=== PATIENT | female | born 1940 | race Caucasian/White ===

== ENCOUNTER 2017-07-26 12:24 | Day surgery (SDC) | payer OTHER ==
[~2017-07-26] VITALS: Ht 165.1 cm; Wt 86.9 kg
[~2017-07-26 12:24] MED LIST: ASPI325; ASPI325EC; ASPI81CH; ASPI81EC PO; ATOR10; ATOR10 PO; CALCIT950; CALCIUM PO; CHOL10002; CHOND PO; CONEST.625; CONEST.9 PO; FISH1000; FLAX; FLAX PO; FLURBIPROFEN PO; FOLI1; GLUCHON; GLUCO PO; HYDACE7.5; HYDROCODONE PO; LEVFLO500; LEVSOD125; LEVSOD150 PO; MELA3; MELATONIN PLUS PO; MULVITB; MULVITB&C PO; MULVITMIND PO; MULVITMINE; OMEGA-3 PO; OXYBUTYNIN ER PO; PREMARIN; PREMARIN PO; PROBIOTIC1 EAC1; TOCO400; TOCO400 PO; TURMERIC500 MG; VIT A PO; VITAMIN C PO; [UNRECOGNIZED DRUG - OTHER] PO; [UNRECOGNIZED DRUG - OTHER] PO
== END 2017-07-26 13:50 | disposition home or self-care (01) ==
LOC: ORSCSDS 12:24
PROVIDERS: Anesthesiology
PROC: 3E0R33Z Introduction of Anti-inflammatory into Spinal Canal, Percutaneous Approach (ICD-10-PCS; principal; 2017-07-26 13:30)
DX: M51.16 Intervertebral disc disorders with radiculopathy, lumbar region (principal); I10 Essential (primary) hypertension; E03.9 Hypothyroidism, unspecified; K21.9 Gastro-esophageal reflux disease without esophagitis; E78.00 Pure hypercholesterolemia, unspecified; E66.9 Obesity, unspecified; Z68.32 Body mass index [BMI] 32.0-32.9, adult
CPT/HCPCS: J1040

== ENCOUNTER 2017-08-10 06:57 | Day surgery (SDC) | payer OTHER ==
[~2017-08-10] VITALS: Ht 152.4 cm; Wt 84.8 kg
== END 2017-08-10 10:28 | disposition home or self-care (01) ==
LOC: ORSCSDS 06:57
PROVIDERS: Podiatrist Foot & Ankle Surgery
PROC: 0SGQ04Z Fusion of Left Toe Phalangeal Joint with Internal Fixation Device, Open Approach (ICD-10-PCS; principal; 2017-08-10 08:30)
DX: M19.072 Primary osteoarthritis, left ankle and foot (principal); M20.62 Acquired deformities of toe(s), unspecified, left foot; M25.775 Osteophyte, left foot; I10 Essential (primary) hypertension; E03.9 Hypothyroidism, unspecified; Z79.899 Other long term (current) drug therapy; Z87.891 Personal history of nicotine dependence; Z79.82 Long term (current) use of aspirin
CPT/HCPCS: J0690; J2250; J3010; J7120

== ENCOUNTER 2017-11-24 11:27 | Day surgery (SDC) | payer OTHER ==
[~2017-11-24] VITALS: Ht 162.6 cm; Wt 88.7 kg
== END 2017-11-24 13:52 | disposition home or self-care (01) ==
LOC: ORSCSDS 11:27
PROVIDERS: Anesthesiology
PROC: 3E0R33Z Introduction of Anti-inflammatory into Spinal Canal, Percutaneous Approach (ICD-10-PCS; principal; 2017-11-24 12:45)
DX: M51.16 Intervertebral disc disorders with radiculopathy, lumbar region (principal); Z79.899 Other long term (current) drug therapy; K21.9 Gastro-esophageal reflux disease without esophagitis; E03.9 Hypothyroidism, unspecified; Z87.891 Personal history of nicotine dependence; Z79.82 Long term (current) use of aspirin
CPT/HCPCS: J1040

== ENCOUNTER 2018-04-06 10:16 | Day surgery (SDC) | payer OTHER ==
[~2018-04-06] VITALS: Ht 162.6 cm; Wt 88.6 kg
[2018-04-06] MEDS ORDERED: Cyclobenzaprine5 MG (10:40)
[2018-04-06] MEDS ORDERED: OXYB5 (10:40)
[2018-04-06] MEDS ORDERED: NAPR500 (10:40)
[2018-04-06] MEDS ORDERED: LINZESS290 MCG (10:41)
== END 2018-04-06 11:39 | disposition home or self-care (01) ==
LOC: ORSCSDS 10:16
PROVIDERS: Anesthesiology
PROC: 3E0R33Z Introduction of Anti-inflammatory into Spinal Canal, Percutaneous Approach (ICD-10-PCS; principal; 2018-04-06 11:15)
DX: M51.16 Intervertebral disc disorders with radiculopathy, lumbar region (principal); E66.9 Obesity, unspecified; I10 Essential (primary) hypertension; K21.9 Gastro-esophageal reflux disease without esophagitis; E78.00 Pure hypercholesterolemia, unspecified; E03.9 Hypothyroidism, unspecified; Z68.33 Body mass index [BMI] 33.0-33.9, adult; Z79.82 Long term (current) use of aspirin; Z79.899 Other long term (current) drug therapy
CPT/HCPCS: J1040; J2001

== ENCOUNTER 2018-08-07 08:56 | Day surgery (SDC) | payer OTHER ==
[~2018-08-07] VITALS: Ht 165.1 cm; Wt 88.5 kg
[~2018-08-07 08:56] MED LIST changes: +Cyclobenzaprine5 MG; +LINZESS290 MCG; +NAPR500; +OXYB5
== END 2018-08-07 10:11 | disposition home or self-care (01) ==
LOC: ORSCSDS 08:56
PROVIDERS: Anesthesiology
PROC: 3E0R33Z Introduction of Anti-inflammatory into Spinal Canal, Percutaneous Approach (ICD-10-PCS; principal; 2018-08-07 10:00)
DX: M51.16 Intervertebral disc disorders with radiculopathy, lumbar region (principal); I10 Essential (primary) hypertension; E03.9 Hypothyroidism, unspecified; E78.00 Pure hypercholesterolemia, unspecified; K21.9 Gastro-esophageal reflux disease without esophagitis; E66.9 Obesity, unspecified; Z68.33 Body mass index [BMI] 33.0-33.9, adult; Z79.82 Long term (current) use of aspirin; Z79.899 Other long term (current) drug therapy
CPT/HCPCS: J1040

== ENCOUNTER 2018-11-27 08:42 | Day surgery (SDC) | payer OTHER ==
[~2018-11-27] VITALS: Ht 165.1 cm; Wt 88.0 kg
[~2018-11-27 08:42] MED LIST changes: +LO-DOSE ASPIRIN81 MG PO; +MELATONIN5 M1 PO
== END 2018-11-27 09:45 | disposition home or self-care (01) ==
LOC: ORSCSDS 08:42
PROVIDERS: Anesthesiology
PROC: 3E0R33Z Introduction of Anti-inflammatory into Spinal Canal, Percutaneous Approach (ICD-10-PCS; principal; 2018-11-27 08:00)
DX: M51.16 Intervertebral disc disorders with radiculopathy, lumbar region (principal); I10 Essential (primary) hypertension; E78.00 Pure hypercholesterolemia, unspecified; E03.9 Hypothyroidism, unspecified; Z87.891 Personal history of nicotine dependence; Z79.82 Long term (current) use of aspirin; Z79.899 Other long term (current) drug therapy
CPT/HCPCS: J1040

== ENCOUNTER → 2019-01-25 | Outpatient (CLI) | payer OTHER ==
[2019-01-25 13:12] LABS: BASOPHILS ABSOLUTE AUTO 0.04 K/mm3 (0.00-0.23); BASOPHILS PERCENT AUTO 1 % (0-2); EOSINOPHILS ABSOLUTE AUTO 0.35 K/mm3 (0.00-0.68); EOSINOPHILS PERCENT AUTO 5 % (0-6); Hematocrit 32.7 % (33.0-51.0); Hemoglobin 10.5 g/dL (11.5-16.0); IMMATURE GRAN ABSOLUTE AUTO 0.02 K/mm3 (0.00-0.10); IMMATURE GRAN PERCENT AUTO 0 % (0-1); LYMPHOCYTES PERCENT AUTO 26 % (21-46); MONOCYTES ABSOLUTE AUTO 0.63 K/mm3 (0.16-1.47); MONOCYTES PERCENT AUTO 10 % (4-13); Mean Corpuscular HGB 27.3 pg (26.0-34.0); Mean Corpuscular HGB Conc 32.1 g/dL (31.5-36.5); Mean Corpuscular Volume 85 fL (80-100); Mean Platelet Volume 10.2 fL (9.1-12.4); NEUTROPHILS ABSOLUTE AUTO 3.87 K/mm3 (1.96-9.15); NEUTROPHILS PERCENT AUTO 59 % (41-73); Platelet Count 156 K/mm3 (150-400); RDW Coefficient Variation 19.5 % (11.7-14.2); RDW Standard Deviation 59.2 fL (35.1-46.3); Red Blood Cell Count 3.85 M/mm3 (3.80-5.20); White Blood Cell Count 6.61 K/mm3 (4.00-11.30)
[2019-01-25 13:22] LABS: Albumin, Blood 2.9 g/dL (3.4-5.0); Albumin/Globulin Ratio 0.9 (0.8-1.8); Bilirubin, Total 0.4 mg/dL (0.1-1.0); Bun/Creatinine Ratio 15.4 (12.0-20.0); Calcium, Blood 8.6 mg/dL (8.5-10.1); Creatinine, Blood 0.91 mg/dL (0.40-1.00); Globulin, Blood 3.4 g/dL (2.2-4.0); Potassium, Blood 4.1 mmol/L (3.5-5.5); Total Protein, Blood 6.3 g/dL (6.4-8.2)
== END | disposition home or self-care (01) ==
LOC: LAB EV 13:07 → LAB SHORT 13:07
PROVIDERS: General Practice
DX: J18.1 Lobar pneumonia, unspecified organism (principal)
CPT/HCPCS: 80053; 85025

== ENCOUNTER 2019-04-04 10:22 | Day surgery (SDC) | payer OTHER ==
[~2019-04-04] VITALS: Ht 165.1 cm; Wt 90.0 kg
== END 2019-04-04 11:45 | disposition home or self-care (01) ==
LOC: ORSCSDS 10:22
PROVIDERS: Anesthesiology
PROC: 3E0R33Z Introduction of Anti-inflammatory into Spinal Canal, Percutaneous Approach (ICD-10-PCS; principal; 2019-04-04 11:30)
DX: M51.16 Intervertebral disc disorders with radiculopathy, lumbar region (principal); I10 Essential (primary) hypertension; E78.5 Hyperlipidemia, unspecified; E03.9 Hypothyroidism, unspecified; Z79.899 Other long term (current) drug therapy
CPT/HCPCS: J1040

== ENCOUNTER 2019-09-23 10:59 | Day surgery (SDC) | payer OTHER ==
[~2019-09-23] VITALS: Ht 165.1 cm; Wt 93.8 kg
[2019-09-23] MEDS ORDERED: MELO7.5 (11:19)
== END 2019-09-23 12:48 | disposition home or self-care (01) ==
LOC: ORSCSDS 10:59
PROVIDERS: Anesthesiology
PROC: 3E0R33Z Introduction of Anti-inflammatory into Spinal Canal, Percutaneous Approach (ICD-10-PCS; principal; 2019-09-23 12:00)
DX: M51.16 Intervertebral disc disorders with radiculopathy, lumbar region (principal); I10 Essential (primary) hypertension; E03.9 Hypothyroidism, unspecified; E78.00 Pure hypercholesterolemia, unspecified; E66.01 Morbid (severe) obesity due to excess calories; Z68.34 Body mass index [BMI] 34.0-34.9, adult; Z79.82 Long term (current) use of aspirin; Z79.899 Other long term (current) drug therapy
CPT/HCPCS: J1040

== ENCOUNTER 2020-10-08 09:26 | Day surgery (SDC) | payer OTHER ==
[~2020-10-08] VITALS: Ht 165.1 cm; Wt 98.9 kg
[~2020-10-08 09:26] MED LIST changes: +A AND D OINTM42.5 G1; +Aspirin EC81 MG PO; +C COMPLEX1000 M2 PO; +FLAXSEED OIL1000 M1 PO; +LEVSOD112 PO; +LINZESS290 MCG PO; +MELA3 PO; +MELO7.5; +MELO7.5 PO; +METAMUCIL POWD575 GM; +MULTIPLE VITAM1 EACH PO; +Norco 10-325 T1 EACH PO; +Norco 7.5-3251 EACH PO; +OMEGA-3 KRILL1 EAC3 PO; +OMEP20ER PO; +OXYB5 PO; +VITAMIN D325 MC3 PO
== END 2020-10-08 10:35 | disposition home or self-care (01) ==
LOC: ORSCSDS 09:26
PROVIDERS: Anesthesiology
PROC: 3E0R33Z Introduction of Anti-inflammatory into Spinal Canal, Percutaneous Approach (ICD-10-PCS; principal; 2020-10-08 10:30)
DX: M51.16 Intervertebral disc disorders with radiculopathy, lumbar region (principal); E78.00 Pure hypercholesterolemia, unspecified; K21.9 Gastro-esophageal reflux disease without esophagitis; E03.9 Hypothyroidism, unspecified; I10 Essential (primary) hypertension; E66.9 Obesity, unspecified; Z68.36 Body mass index [BMI] 36.0-36.9, adult; Z79.82 Long term (current) use of aspirin; Z79.899 Other long term (current) drug therapy
CPT/HCPCS: J1040

== ENCOUNTER 2021-02-22 13:21 | Day surgery (SDC) | payer OTHER ==
[~2021-02-22] VITALS: Ht 165.1 cm; Wt 96.9 kg
[2021-02-22] MEDS ORDERED: CALCIUM 600 +1 EAC8 PO (13:47)
[2021-02-22] MEDS ORDERED: MAGNESIUM OXID500 MG PO (13:47)
[2021-02-22] MEDS ORDERED: PROBIOTIC1 EA13 PO (13:49)
[2021-02-22] MEDS ORDERED: Aspir 8181 MG PO (13:49)
[2021-02-22] MEDS ORDERED: CYCLOBENZAPRINE5 MG PO (13:49)
== END 2021-02-22 14:35 | disposition home or self-care (01) ==
LOC: ORSCSDS 13:21
PROVIDERS: Anesthesiology
PROC: 3E0R33Z Introduction of Anti-inflammatory into Spinal Canal, Percutaneous Approach (ICD-10-PCS; principal; 2021-02-22 14:30)
DX: M51.16 Intervertebral disc disorders with radiculopathy, lumbar region (principal); M54.16 Radiculopathy, lumbar region; I10 Essential (primary) hypertension; E03.9 Hypothyroidism, unspecified; E78.00 Pure hypercholesterolemia, unspecified; K21.9 Gastro-esophageal reflux disease without esophagitis; Z79.82 Long term (current) use of aspirin; Z79.899 Other long term (current) drug therapy
CPT/HCPCS: J1040

== ENCOUNTER 2021-05-24 10:05 | Day surgery (SDC) | payer OTHER ==
[~2021-05-24] VITALS: Ht 165.1 cm; Wt 98.0 kg
[~2021-05-24 10:05] MED LIST changes: +Aspir 8181 MG PO; +CALCIUM 600 +1 EAC8 PO; +CYCLOBENZAPRINE5 MG PO; +MAGNESIUM OXID500 MG PO; +PROBIOTIC1 EA13 PO
== END 2021-05-24 11:40 | disposition home or self-care (01) ==
LOC: ORSCSDS 10:05
PROVIDERS: Anesthesiology
PROC: 3E0R33Z Introduction of Anti-inflammatory into Spinal Canal, Percutaneous Approach (ICD-10-PCS; principal; 2021-05-24 11:15)
DX: M51.16 Intervertebral disc disorders with radiculopathy, lumbar region (principal); E03.9 Hypothyroidism, unspecified; E78.00 Pure hypercholesterolemia, unspecified; Z79.82 Long term (current) use of aspirin; Z79.899 Other long term (current) drug therapy
CPT/HCPCS: J1040

== ENCOUNTER → 2021-05-29 | Outpatient (CLI) | payer OTHER | END | disposition home or self-care (01) | LOC: LAB SHORT 15:18 | DX: N39.0 Urinary tract infection, site not specified (principal) | CPT/HCPCS: 87086 ==

== ENCOUNTER → 2021-06-29 | Outpatient (CLI) | payer OTHER | END | disposition home or self-care (01) | LOC: LAB SHORT 18:35 | DX: N39.0 Urinary tract infection, site not specified (principal) | CPT/HCPCS: 87077; 87086; 87186 ==

== ENCOUNTER 2021-09-20 10:09 | Day surgery (SDC) | payer OTHER ==
[~2021-09-20] VITALS: Ht 165.1 cm; Wt 96.0 kg
[~2021-09-20 10:09] MED LIST changes: -CALCIUM 600 +1 EAC8 PO; +VIT PO
--- NOTE | 2021-09-21 03:07 | NUR ---
CURRENT B/P WAS TAKEN WHEN PT. JUST MOVED AROUND FROM THE BEDSIDE COMMODE, RECHECK AFTER A FEW MINUTES = 151/71. PT. ASYMPTOMATIC, DENIES CP.
--- NOTE | 2021-09-21 03:14 | NUR ---
SHIFT SUMMARY: PATIENT AOX4, ABLE TO MAKE NEEDS KNOWN, USES CALL LIGHT FOR HELP. L KNEE INCISION WITH ACEWRAP C/D/I. POLAR PACK ON. VOIDING WELL TO THE BEDSIDE COMMODE WITH 1 PERSON ASSIST, USING A WALKER & GAITBELT.COMPLAINTS OF PAIN MEDICATED PER EMAR. NO ACUTE CHANGES NOTED. WILL CONTINUE TO MONITOR.
[2021-09-21 05:25] LABS: BASOPHILS ABSOLUTE AUTO 0.01 K/mm3 (0.00-0.23); BASOPHILS PERCENT AUTO 0 % (0-2); EOSINOPHILS PERCENT AUTO 0 % (0-6); IMMATURE GRAN ABSOLUTE AUTO 0.03 K/mm3 (0.00-0.10); IMMATURE GRAN PERCENT AUTO 0 % (0-1); LYMPHOCYTES PERCENT AUTO 10 % (21-46); MONOCYTES ABSOLUTE AUTO 0.71 K/mm3 (0.16-1.47); MONOCYTES PERCENT AUTO 7 % (4-13); Mean Corpuscular HGB 26.3 pg (26.0-34.0); Mean Corpuscular HGB Conc 31.4 g/dL (31.5-36.5); Mean Corpuscular Volume 84 fL (80-100); Mean Platelet Volume 9.7 fL (9.1-12.4); NEUTROPHILS ABSOLUTE AUTO 8.58 K/mm3 (1.96-9.15); NEUTROPHILS PERCENT AUTO 83 % (41-73); Platelet Count 193 K/mm3 (150-400); RDW Coefficient Variation 14.6 % (11.7-14.2); Red Blood Cell Count 4.18 M/mm3 (3.80-5.20); White Blood Cell Count 10.33 K/mm3 (4.00-11.30)
[2021-09-21 05:37] LABS: Bun/Creatinine Ratio 17.7 (12.0-20.0); Creatinine, Blood 0.96 mg/dL (0.40-1.00); Magnesium, Blood 1.8 mg/dL (1.6-2.4); Potassium, Blood 4.7 mmol/L (3.5-5.5)
[2021-09-21] MEDS ORDERED: XARELTO20 MG PO (14:29)
[2021-09-21] MEDS ORDERED: ROXICODONE5 MG PO (14:30)
--- NOTE | 2021-09-21 16:30 | NUR ---
DISCHARGE SUMMARY A/O X4, VSS, TOLERATING PO, PAIN WELL MANAGED, VOIDING WELL. DISCUSSED DISCHARGE INFOMRATION WITH THE PATIENT AND HER DAUGHTER, DISCUSSED PAIN MANAGEMENT, FOLLOW UP APPOINTMENTS, AND AT HOME CARE. PROVIDED CONTACT INFORMATION SHOULD QUESTIONS ARISE AFTER DISCHARGE. PT GIVEN EDUCATION REGARDING HER PROCEDURE AND HOME CARE INFORMATION. NO QUESTIONS AT THIS TIME. IV ACCESS REMOVED AND NO OTHER DEVICES IN PLACE, ESCORTED OUT VIA WC BY THIS RN WITH ALL PERSONAL POSSESSIONS.
== END 2021-09-21 15:27 | disposition home or self-care (01) ==
LOC: ORSCMMR 10:09 → ORD 11:30 → ORSCMMR 11:30 → SURS 17:36 → ORSCMMR 09-21 15:27
PROVIDERS: Orthopaedic Surgery
PROC: 8E0Y0CZ Robotic Assisted Procedure of Lower Extremity, Open Approach (ICD-10-PCS; principal; 2021-09-20 11:30)
PROC: 0SRD0JA Replacement of Left Knee Joint with Synthetic Substitute, Uncemented, Open Approach (ICD-10-PCS; principal; 2021-09-20 11:30)
DX: M17.12 Unilateral primary osteoarthritis, left knee (principal); E78.5 Hyperlipidemia, unspecified; E03.9 Hypothyroidism, unspecified; Z79.899 Other long term (current) drug therapy; Z87.891 Personal history of nicotine dependence
CPT/HCPCS: 27447; S2900; 36415; 73560-LT; 80048; 83735; 85025; 97110; 97116; 97162; A9270; C1776; J0171; J0690; J0735; J1100; J1885; J2250; J2370; J2405; J2704; J2795; J3010; J7120

== ENCOUNTER 2021-09-30 12:30 | Inpatient (IN) | payer OTHER ==
[~2021-09-30] VITALS: Ht 165.1 cm; Wt 99.0 kg
[~2021-09-30 12:30] MED LIST changes: +ROXICODONE5 MG PO; +XARELTO20 MG PO
--- NOTE | 2021-09-30 18:38 | NUR ---
PATIENT ARRIVED TO ROOM 350 AT 18:15. ALERT AND ORIENTED X 4, PATIENT L KNEE HAS REPLACEMENT ON SEPTEMBER 23. PATIENT SUSTAINED A FALL TODAY AND LANDED ON L KNEE. WOUND SITE WITH DRESSING DCI. PATIENT DENIES PAIN AT THIS TIME. PATIENT WAS MEDEICATED ON THE ER. PATIENT IN BED RESTING. CALL LIGHT WITHIN REACH.
--- NOTE | 2021-10-01 04:34 | NUR ---
PT IS A&OX4, VSS, USES BEADPAN TO VIOD, AND IS ABLE TO MAKE NEEDS KNOWN. PT HAD LKA 10 DAYS AGO AND RETURNS TO HOSPITAL LAST EVENING D/T FALL. HAS BEEN NPO SINCE MIDNIGHT FOR PORCEEDURE TODAY. KNEE WRAPPED IN ZENOBIA BANDAGE, HAS SOME BRUISING ON WINKLER, STORNG PEDAL PULSE. PAIN CONTROLLED WITH PRN NICK 5MG. WILL CONTINUE TO MONITOR
[2021-10-01 04:54] LABS: BASOPHILS ABSOLUTE AUTO 0.04 K/mm3 (0.00-0.23); BASOPHILS PERCENT AUTO 1 % (0-2); EOSINOPHILS ABSOLUTE AUTO 0.24 K/mm3 (0.00-0.68); EOSINOPHILS PERCENT AUTO 3 % (0-6); Hematocrit 29.1 % (33.0-51.0); Hemoglobin 8.9 g/dL (11.5-16.0); IMMATURE GRAN ABSOLUTE AUTO 0.05 K/mm3 (0.00-0.10); IMMATURE GRAN PERCENT AUTO 1 % (0-1); LYMPHOCYTES ABSOLUTE AUTO 1.77 K/mm3 (0.84-5.20); LYMPHOCYTES PERCENT AUTO 24 % (21-46); MONOCYTES ABSOLUTE AUTO 0.68 K/mm3 (0.16-1.47); MONOCYTES PERCENT AUTO 9 % (4-13); Mean Corpuscular HGB 26.2 pg (26.0-34.0); Mean Corpuscular HGB Conc 30.6 g/dL (31.5-36.5); Mean Corpuscular Volume 86 fL (80-100); Mean Platelet Volume 9.3 fL (9.1-12.4); NEUTROPHILS ABSOLUTE AUTO 4.62 K/mm3 (1.96-9.15); NEUTROPHILS PERCENT AUTO 63 % (41-73); Platelet Count 279 K/mm3 (150-400); RDW Coefficient Variation 16.6 % (11.7-14.2); RDW Standard Deviation 50.1 fL (35.1-46.3)
[2021-10-01 05:13] LABS: Albumin, Blood 2.5 g/dL (3.4-5.0); Anion Gap 4 mmol/L (6-16); Blood Urea Nitrogen 13 mg/dL (8-24); Bun/Creatinine Ratio 17.4 (12.0-20.0); CO2, Blood 29 mmol/L (21-32); Calcium, Blood 8.5 mg/dL (8.5-10.1); Chloride, Blood 105 mmol/L (98-108); Creatinine, Blood 0.75 mg/dL (0.40-1.00); Glomerular Filtration Rate >60 (60-); Glucose, Blood 112 mg/dL (70-99); Phosphorus, Blood 3.9 mg/dL (2.5-4.9); Potassium, Blood 4.1 mmol/L (3.5-5.5); Sodium, Blood 138 mmol/L (136-145)
[2021-10-01 05:19] LABS: International Normalized Ratio 1.1; Prothrombin Time Results 11.5 Sec (9.7-11.5)
[2021-10-01 11:21] LABS: Influenza A, PCR NEGATIVE (NEGATIVE); Influenza B, PCR NEGATIVE (NEGATIVE); Resp Syncytial Virus, PCR NEGATIVE (NEGATIVE); SARS-Cov-2 (COVID-19) PCR, MMC NEGATIVE (NEGATIVE)
--- NOTE | 2021-10-01 12:03 | NUR ---
ASSUMED CARE AT 1200. REPORT FROM TOMAS NUÑEZ
--- NOTE | 2021-10-01 14:03 | NUR ---
10/01/21 1403 Delia Bear PATIENT ON SCHEDULED ANTIBIOTICS. RECEIVED 2G OF VANCOMYCIN THIS MORNING AT 0857. NO INTRAOPERATIVE ANTIBIOTICS ORDERED PER DOCTOR.
--- NOTE | 2021-10-01 14:59 | NUR ---
PT PAIN SEEMS TO BE GETTING WORSE SHE AGREES TO TRY TO REST A MINUTE BEFORE TAKING MORE EYES CLOSED LAYING QUIETLY WAITED 10 MINUTES PAIN CONTINUES MEDICATED WITH 50 MCG IV FENT
--- NOTE | 2021-10-01 15:57 | NUR ---
SHIFT SUMMARY POD0 L KNEE I&D, A/O X4. PT RETURNED FROM PACU AT AROUND 1540 IN STABLE CONDITION, VSS, REPORTED 6/10 PAIN DURING INITIAL ASSESSMENT AFTER ARRIVING TO THE FLOOR POST OP, TXA TO BE GIVEN AT 1552 FOR SECOND DOSE. PT ALERT BUT DROWSY. NO ACUTE EVENTS THIS SHIFT, CALL LIGHT IN REACH, WILL CTM AND REPORT TO NOC RN.
--- NOTE | 2021-10-02 04:03 | NUR ---
SHIFT SUMMARY NO ACUTE CHANGES TO REPORT THIS SHIFT, PT HAS RESTED T/O THE NIGHT. PAIN HAS BEEN WELL CONTROLLED WITH OXYCODONE AND SCHEDULED TYLENOL. AVERAGE PAIN RATING 5 (0-10). PT HAS BEEN OOB TO USE THE BSC AND HAS TOLERATED AMBULATION. POST OP VITALS STABLE. DRESSING INTACT TO LEFT KNEE C/D/I. PT DENIES N/T TO FEET. POSSIBLE D/C TODAY. BED IN LOWEST POSITION, CALL LIGHT WITHIN REACH.
[2021-10-02 04:21] LABS: BASOPHILS ABSOLUTE AUTO 0.02 K/mm3 (0.00-0.23); BASOPHILS PERCENT AUTO 0 % (0-2); EOSINOPHILS ABSOLUTE AUTO 0.01 K/mm3 (0.00-0.68); EOSINOPHILS PERCENT AUTO 0 % (0-6); Hematocrit 32.9 % (33.0-51.0); IMMATURE GRAN ABSOLUTE AUTO 0.05 K/mm3 (0.00-0.10); IMMATURE GRAN PERCENT AUTO 1 % (0-1); LYMPHOCYTES ABSOLUTE AUTO 1.24 K/mm3 (0.84-5.20); LYMPHOCYTES PERCENT AUTO 12 % (21-46); MONOCYTES ABSOLUTE AUTO 0.72 K/mm3 (0.16-1.47); MONOCYTES PERCENT AUTO 7 % (4-13); Mean Corpuscular HGB 26.1 pg (26.0-34.0); Mean Corpuscular HGB Conc 30.4 g/dL (31.5-36.5); Mean Corpuscular Volume 86 fL (80-100); NEUTROPHILS ABSOLUTE AUTO 8.37 K/mm3 (1.96-9.15); NEUTROPHILS PERCENT AUTO 80 % (41-73); Platelet Count 331 K/mm3 (150-400); RDW Coefficient Variation 16.2 % (11.7-14.2); RDW Standard Deviation 49.5 fL (35.1-46.3); Red Blood Cell Count 3.83 M/mm3 (3.80-5.20); White Blood Cell Count 10.41 K/mm3 (4.00-11.30)
[2021-10-02 04:45] LABS: Anion Gap 6 mmol/L (6-16); Blood Urea Nitrogen 21 mg/dL (8-24); Bun/Creatinine Ratio 23.5 (12.0-20.0); CO2, Blood 29 mmol/L (21-32); Calcium, Blood 9.2 mg/dL (8.5-10.1); Chloride, Blood 100 mmol/L (98-108); Creatinine, Blood 0.89 mg/dL (0.40-1.00); Glomerular Filtration Rate >60 (60-); Glucose, Blood 135 mg/dL (70-99); Magnesium, Blood 2.5 mg/dL (1.6-2.4); Potassium, Blood 4.7 mmol/L (3.5-5.5); Sodium, Blood 135 mmol/L (136-145)
--- NOTE | 2021-10-02 16:59 | NUR ---
PT HAS BEEN AOX4 AND COOPERATIVE OF ALL CARE. PT HAS BEEN DOING WELL TRANFERING FROM CHAIR TO RESTROOM WITH GAITBELT AND WALKER. PT HAS HAD KNEE PAIN WITH L KNEE REPLACEMENT. DR GO CAME IT TO EVALUATE AND REWRAP. THIS ROLLER SKATE ASSEMBLER ASSISTED. INCISION SITE LOOKS CLEAN AND STITCHES INTACT. DRESSING REAPPLIED. PT TOLERATED WELL. PT'S MAIN CONCERN GOING HOME IS HELP TO CHANGE HER DRESSING DAILY. PT TREATED FOR PAIN PER EMAR. PT SITTING IN RECLINER ALL DAY AND VERY PLEASANT TO CARE FOR. WILL CONTINUE TO MONITOR.
--- NOTE | 2021-10-03 05:16 | NUR ---
SHIFT SUMMARY NO ACUTE CHANGES TO REPORT THIS SHIFT. PT HAS RESTED MOST OF THE NIGHT. PAIN IS WELL CONTROLLED WITH TYLENOL AND OXYCODONE. SHE HAS BEEN AMBULATING WELL WITH FWW. DRESSING INTACT TO LEFT KNEE C/D/I. IV ANTIBIOTICS PER ORDERS. PLAN IS FOR DISCHARGE ON MONDAY. BED IN LOWEST POSITION, CALL LIGHT WITHIN REACH.
[2021-10-03 09:48] LABS: Vancomycin, Trough 9.4 ug/mL (5.0-10.0)
[2021-10-03] MEDS ORDERED: ACET500 PO (16:57)
[2021-10-03] MEDS ORDERED: BENADRYL25 MG PO (16:58)
[2021-10-03] MEDS ORDERED: SULTRIDS PO (16:58)
--- NOTE | 2021-10-03 19:00 | NUR ---
DISCHARGE SUMMARY DISCHARGED HOME WITH HOME HEALTH, PT CHOSE [facility] FOR HER SERVICES, HOME HEALTH PAGE FAXED TO [facility] AND MESSAGE LEFT WITH THEIR HOME HEALTH [facility] VIA [employer]. DISCUSSED HOME CARE AND FOLLOW UP INFORMATION, PT REPORTED ALREADY HAVING A FOLLOW UP IN [address] ORELLANA. IV ACCESS REMOVED AND NO OTHER IV ACCESS IN PLACE. PT ESCORTED OUT VIA WC WITH HER FAMILY TO [employer] TO GO HOME.
--- NOTE | 2021-10-04 10:21 | NUR ---
Per Dr. Jerel Scott discharge appropriate. Patient did not oppose discharge. Patient discharged home to residence: [address] [place]. Home Health Referral: [facility] contacted and notified of 10/03/21 discharge date. Date of discharge: 10/03/2021 Date of admission: 09/30/2021 Transportation provided by: Family DME Ordered: patient has a rollator and cane Follow-ups needed: [facility] will contact patient to schedule hospital follow-up with PCP. Reinforced importance of follow-up appointments with telehealth as an option Provider/PCP: Dr. July Masterson When: Within one week Specialty: Orthopedic surgery recommended that the nylon sutures remain in the wound 2 and half to 3 weeks postoperatively. She will follow up with Dr. Fulton in the outpatient setting. Confirmed numbers: Patient [phone] Comment: Patient to contact PCP with any questions regarding medication management, social service needs, and if condition worsens go to Urgent Care/ER. No barriers to discharge on this date. Patient has family/friend support.
== END 2021-10-03 18:56 | disposition home health service (06) | DRG 909 ==
LOC: ER 12:30 → SURS 12:31 → MEDS 18:08 → SURS 20:18
PROVIDERS: Orthopaedic Surgery; ADMIT Family Medicine
PROC: 0SUW09Z Supplement Left Knee Joint, Tibial Surface with Liner, Open Approach (ICD-10-PCS; 2021-10-01)
PROC: 0SPD09Z Removal of Liner from Left Knee Joint, Open Approach (ICD-10-PCS; principal; 2021-10-01 12:30)
DX: T81.32XA Disruption of internal operation (surgical) wound, not elsewhere classified, initial encounter (principal); E78.5 Hyperlipidemia, unspecified; E03.9 Hypothyroidism, unspecified; Z88.8 Allergy status to other drugs, medicaments and biological substances; Z88.5 Allergy status to narcotic agent; Z20.822 Contact with and (suspected) exposure to COVID-19; N32.89 Other specified disorders of bladder
CPT/HCPCS: 0241U; 36415; 73562-LT; 80048; 80069; 80202; 83735; 85025; 85610; 96374; 97161; 97530; 99285-25; A9270; C1776; G0378; J0171; J0690; J0696; J0735; J1100; J1885; J2270; J2370; J2405; J2704; J2795; J3010; J3370; J7040; J7050; J7120

== ENCOUNTER 2021-12-08 13:50 | Day surgery (SDC) | payer OTHER ==
[~2021-12-08] VITALS: Ht 165.1 cm; Wt 96.9 kg
[~2021-12-08 13:50] MED LIST changes: +ACET500 PO; +BENADRYL25 MG PO; +SULTRIDS PO
== END 2021-12-08 15:28 | disposition home or self-care (01) ==
LOC: ORSCSDS 13:50
PROVIDERS: Anesthesiology
PROC: 3E0R33Z Introduction of Anti-inflammatory into Spinal Canal, Percutaneous Approach (ICD-10-PCS; principal; 2021-12-08 15:30)
DX: M51.16 Intervertebral disc disorders with radiculopathy, lumbar region (principal); E78.00 Pure hypercholesterolemia, unspecified; E03.9 Hypothyroidism, unspecified; E66.9 Obesity, unspecified; Z68.35 Body mass index [BMI] 35.0-35.9, adult; Z79.82 Long term (current) use of aspirin; Z79.899 Other long term (current) drug therapy
CPT/HCPCS: J1040

== ENCOUNTER 2022-03-02 13:47 | Day surgery (SDC) | payer OTHER ==
[~2022-03-02] VITALS: Ht 165.1 cm; Wt 97.8 kg
[2022-03-02] MEDS ORDERED: Aspir 8181 MG PO (14:18)
== END 2022-03-02 15:02 | disposition home or self-care (01) ==
LOC: ORSCSDS 13:47
PROVIDERS: Anesthesiology
PROC: 3E0R33Z Introduction of Anti-inflammatory into Spinal Canal, Percutaneous Approach (ICD-10-PCS; principal; 2022-03-02 15:30)
DX: M51.16 Intervertebral disc disorders with radiculopathy, lumbar region (principal); E78.00 Pure hypercholesterolemia, unspecified; E03.9 Hypothyroidism, unspecified; E66.9 Obesity, unspecified; Z68.36 Body mass index [BMI] 36.0-36.9, adult; Z79.82 Long term (current) use of aspirin; Z79.899 Other long term (current) drug therapy
CPT/HCPCS: J1040

== ENCOUNTER 2022-07-14 11:51 | Day surgery (SDC) | payer OTHER ==
[~2022-07-14] VITALS: Ht 165.1 cm; Wt 96.6 kg
== END 2022-07-14 13:02 | disposition home or self-care (01) ==
LOC: ORSCSDS 11:51
PROVIDERS: Anesthesiology
PROC: 3E0R33Z Introduction of Anti-inflammatory into Spinal Canal, Percutaneous Approach (ICD-10-PCS; principal; 2022-07-14 13:00)
PROC: 3E0R3BZ Introduction of Anesthetic Agent into Spinal Canal, Percutaneous Approach (ICD-10-PCS; principal; 2022-07-14 13:00)
DX: M51.16 Intervertebral disc disorders with radiculopathy, lumbar region (principal); M48.061 Spinal stenosis, lumbar region without neurogenic claudication; E03.9 Hypothyroidism, unspecified; K21.9 Gastro-esophageal reflux disease without esophagitis; Z79.899 Other long term (current) drug therapy; E78.00 Pure hypercholesterolemia, unspecified
CPT/HCPCS: J1040

== ENCOUNTER → 2022-12-29 | Outpatient (CLI) | payer OTHER | END | disposition home or self-care (01) | LOC: LAB 14:37 → LAB SHORT 14:37 | DX: R35.0 Frequency of micturition (principal) | CPT/HCPCS: 87077; 87086; 87186 ==

== ENCOUNTER → 2023-01-19 | Outpatient (CLI) | payer OTHER | END | disposition home or self-care (01) | LOC: LAB SHORT 13:34 → LAB 13:34 | DX: N39.0 Urinary tract infection, site not specified (principal) | CPT/HCPCS: 87077; 87086; 87186 ==

== ENCOUNTER 2023-05-15 11:52 | Day surgery (SDC) | payer OTHER ==
[~2023-05-15] VITALS: Ht 165.1 cm; Wt 82.7 kg
[2023-05-15] MEDS ORDERED: ATOR10 PO (12:08)
[2023-05-15] MEDS ORDERED: HYDROCODONE-AC1 EAC7 PO (12:10)
--- NOTE | 2023-05-15 12:48 | NUR ---
05/15/23 1248 HUGH VELEZ PT HAD NO IV OR MEDICATIONS. INFORMED BY OR NURSE THAT SHE IS GOING TO DRIVE HERSELF HOME.
[2023-05-15 12:52] VITALS: BP 140/91
== END 2023-05-15 13:03 | disposition home or self-care (01) ==
LOC: ORSCSDS 11:52
PROVIDERS: Anesthesiology
PROC: 3E0R3BZ Introduction of Anesthetic Agent into Spinal Canal, Percutaneous Approach (ICD-10-PCS; principal; 2023-05-15 13:00)
PROC: 3E0R33Z Introduction of Anti-inflammatory into Spinal Canal, Percutaneous Approach (ICD-10-PCS; principal; 2023-05-15 13:00)
DX: M51.16 Intervertebral disc disorders with radiculopathy, lumbar region (principal); E03.9 Hypothyroidism, unspecified; E78.00 Pure hypercholesterolemia, unspecified; K21.9 Gastro-esophageal reflux disease without esophagitis; Z79.899 Other long term (current) drug therapy
CPT/HCPCS: J1040; J7120

== ENCOUNTER → 2023-06-12 | Outpatient (CLI) | payer OTHER ==
[~2023-06-12] MED LIST changes: +HYDROCODONE-AC1 EAC7 PO
== END ==
LOC: LAB SHORT 16:20 → LAB 16:20
DX: N39.0 Urinary tract infection, site not specified (principal)
CPT/HCPCS: 87086

== ENCOUNTER → 2023-12-28 | Outpatient (CLI) | payer OTHER ==
[~2023-12-28] MED LIST changes: +C COMPLEX1000 M1; -C COMPLEX1000 M2 PO; +CALCIUM; +CYCL10; +FISH OIL; +FLAX SEED OIL; +GLUCOSAMINE; +MAGNESIUM OXID500 MG; +MULTIPLE VITAM1 EACH; +PROBIOTIC1 EA13; +THERA-D2000 UNIT; +TURMERIC; +VITAMIN A; +VITAMIN E400 UNIT; +Vitamin B Comple1 EA; +Vitamin C
== END ==
LOC: LAB 07:53 → LAB SHORT 07:53
DX: L81.9 Disorder of pigmentation, unspecified (principal)
CPT/HCPCS: 88305; 88342

== ENCOUNTER → 2025-03-04 | Outpatient (CLI) | payer OTHER | END | disposition home or self-care (01) | LOC: LAB SHORT 14:13 → LAB 14:13 | DX: N39.0 Urinary tract infection, site not specified (principal) | CPT/HCPCS: 87077; 87086; 87186 ==